=== PATIENT | male | born 1980 | race Caucasian/White ===

== ENCOUNTER 2018-03-13 02:15 | Inpatient (IN) ==
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
[2018-03-13] MEDS ORDERED: *HR* FentaNYL (PF) 100 MCG/2 ML VIAL IVP ONE ×4 (02:30→11:02)
[2018-03-13] MEDS ORDERED: *HR* HYDROcodone/Acet 5/325 mg TABLET PO ONE (03:40)
[2018-03-13] MEDS ORDERED: Naloxone 0.4 MG/ML INJ IVP PRN ×3 (03:57→22:07)
[2018-03-13] MEDS ORDERED: *HR* HYDROcodone/Acet 5/325 mg TABLET PO PRN (03:57)
[2018-03-13 04:16] LABS: Basophils # 0.1 K/mcL (0.0-0.2); Basophils % 0.5 %; Eosinophils # 0.1 K/mcL (0.0-0.6); Eosinophils % 0.5 %; Hemoglobin 14.8 g/dL (12.9-16.9); Immature Granulocytes % 0.5 % (0-4); Lymphocytes # 1.6 K/mcL (0.6-4.6); Lymphocytes % 12.9 %; Mean Corpuscular HGB Conc 33.6 g/dL (31.6-35.5); Mean Corpuscular Hemoglobin 31.8 pg (28.0-33.3); Mean Corpuscular Volume 94.4 fL (83.0-100.0); Mean Platelet Volume 10.2 fL (9.4-12.4); Monocytes # 0.6 K/mcL (0.0-1.3); Monocytes % 4.7 %; Neutrophils # 10.2 K/mcL (1.6-8.9); Platelet Count 227 K/mcL (140-400); Red Blood Count 4.66 M/mcL (4.19-5.50); Red Cell Distribution Width 12.5 % (11.5-14.5); Segmented Neutrophils % 80.9 %
[2018-03-13 04:20] LABS: Prothrombin Time 11.1 Seconds (9.4-12.1)
[2018-03-13 04:22] LABS: Activated Partial Thrombo Time 30.8 Seconds (26.0-36.0)
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
[2018-03-13 04:32] LABS: BUN/Creatinine Ratio 13 (6-26); Blood Urea Nitrogen 11 mg/dL (6-20); Calcium 9.1 mg/dL (8.6-10.3); Carbon Dioxide 26 mEq/L (23-29); Chloride 107 mEq/L (98-107); Glucose 115 mg/dL (70-105); Osmolality,Calculated 292 (280-300); Potassium 4.3 mEq/L (3.5-5.1); Sodium 141 mEq/L (136-145); eGFR For Non-African Americans > 60 (> 60)
[2018-03-13] MEDS: *HR* Heparin 5,000 UNIT/ML VIAL SQ SCH ×2 (05:21→14:51)
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
[2018-03-13] MEDS ORDERED: Nicotine 21 MG PATCH.TD24 TD SCH (09:00)
[2018-03-13] MEDS ORDERED: *HR* OxyCODONE Immed Rel 5 MG TABLET PO PRN ×3 (14:25→22:07)
--- NOTE | 2018-03-13 17:25 | Orthopedics Progress Note ---
Date of Encounter: 03/13/18 Time of Encounter: 17:21 - Assessment and Plan (1) Fracture of right tibia and fibula Current Visit: Yes Status: Acute Qualifiers: Encounter type: initial encounter Fracture type: closed Qualified Code(s): S82.201A - Unspecified fracture of shaft of right tibia, initial encounter for closed fracture; S82.401A - Unspecified fracture of shaft of right fibula, initial encounter for closed fracture Subjective Interval history: S: The patient is resting in bed Pain has been well-controlled to the right leg O: Afebrile on the vital signs are stable Mild swelling to the right tib-fib and moderate swelling to the ankle The compartments are all soft and compressible He is able to dorsiflex and plantarflex the toes The foot is warm, sensate and well-perfused Strong dopplerable DP and PT signals are present in the foot. A: Right tib-fib fracture CT scan shows a noncommunicative posterior malleolus fracture P: This point we are proceeding with closed reduction, likely percutaneous clamping with medullary nailing of the right tibia and I anticipate percutaneous screw into the posterior malleolus from A to P. The risks discussed included but were not limited to stiffness, bleeding, infection, blood clots, damage to neurovascular structures, tendons, ligaments, and bone. Also discussed was the risk of continued symptoms and possible need for further procedures. I did discuss the anesthesia risks including stroke, heart attack, and . I did discuss the reasonable, foreseeable postoperative course with the patient. The patient did wish to proceed and consent was confirmed. Objective Vital signs: Vital Signs Temp Pulse Resp BP Pulse Ox 03/13/18 15:57 98.0 F 84 16 132/75 96 03/13/18 11:25 98.9 F 81 18 127/77 97 03/13/18 07:03 98.7 F 92 18 104/64 93 03/13/18 04:55 98.4 F 85 18 128/76 95 03/13/18 04:09 86 18 139/85 99 03/13/18 02:18 98.8 F 83 16 124/85 98 Intake and Output 03/13/18 03/13/18 03/13/18 07:59 15:59 23:59 Other: Weight 86.3 kg Patient Weight 03/13/18 23:59 Weight 86.3 kg - Labs CBC & BMP: 03/13/18 04:00 03/13/18 04:00 Labs: Abnormal lab results WBC 12.6 K/mcL (4.3-11.1) H 03/13/18 04:00 Neutrophils # 10.2 K/mcL (1.6-8.9) H 03/13/18 04:00 Glucose 115 mg/dL (70-105) H 03/13/18 04:00 Consult Discharge Plan - Plan Referrals: NONE,PCP [Primary Care Provider] -
--- NOTE | 2018-03-13 17:34 | Anesthesia Evaluation PreOp ---
Date of Encounter: 03/13/18 Time of Encounter: 17:32 - Past History Planned Operation: Right tibial nail Cardiac History: Denies any Significant Hx Pulmonary History: Smoker LEGAL PRACTICE MANAGER History: Denies Any Significant HX Other Medical History: Denies Any Significant HX Anesthesia History: No Prior Anesthetic Complications Alcohol Use: occasionally Drug use: none Medications and Allergies No Known Home Drugs 03/13/18 [History] Allergy/AdvReac Type Severity Reaction Status Date / Time No Known Allergies Allergy Verified 03/13/18 12:31 - Meds/Allergy Pre-op Review Medications Reviewed: Yes Allergies Reviewed: Yes Beta Blockers on Current Med List: No Anesthesia Results - Labs 03/13/18 04:00 03/13/18 04:00 Anesthesia Exam Last Vital Signs Temp 98.0 F 03/13/18 15:57 Pulse 84 03/13/18 15:57 Resp 16 03/13/18 15:57 BP 132/75 03/13/18 15:57 Pulse Ox 96 03/13/18 15:57 Weight: 86 kg NPO (# of Hours): > 8 hrs - HEENT Pupil (Motor): Pupils equal, EOMI Mallampati: III Teeth: Normal Oral Opening: Greater than 3 - LEGAL PRACTICE MANAGER LOC: Oriented - Cardiac Rhythm: Regular Murmur: None - Pulmonary Breath Sounds: bilateral Clear Respiratory Effort: Symmetrical Anesthesia Assess/Plan ASA Score: 2 Level of consciousness: Cooperative Anesthetic Plan: General Reason for No Neuroaxial/Regional Block: Other (not necessary; just nail) Monitoring Plan: Standard Monitors Recovery Plan: PACU
[2018-03-13] MEDS ORDERED: *HR* Propofol 200 MG/20 ML VIAL IVP ONE ×2 (17:53)
[2018-03-13] MEDS ORDERED: *HR* FentaNYL (PF) 100 MCG/2 ML VIAL ONE (17:53)
[2018-03-13] MEDS ORDERED: *HR* Midazolam HCl 2 MG/2 ML VIAL ONE (17:53)
[2018-03-13] MEDS ORDERED: Lidocaine -MPF 2% 2 ML VIAL ONE (17:53)
[2018-03-13] MEDS ORDERED: *HR* Succinylcholine 200 MG/10 ML VIAL IVP ONE (17:54)
[2018-03-13] MEDS ORDERED: Ringers Solution, Lactated 1,000 ML ONE (18:08)
[2018-03-13] MEDS ORDERED: Ondansetron 4 MG/2 ML VIAL ONE (18:14)
[2018-03-13] MEDS ORDERED: Dexamethasone 4 MG/ML VIAL ONE (18:14)
[2018-03-13] MEDS ORDERED: *HR* Morphine 10 MG/ML VIAL ONE (19:33)
[2018-03-13] MEDS ORDERED: *HR* FentaNYL (PF) 100 MCG/2 ML VIAL IVP PRN ×2 (20:07→22:07)
[2018-03-13] MEDS ORDERED: Acetaminophen IV 1,000 MG/100 ML INFUS..BTL ONE (21:19)
--- NOTE | 2018-03-13 21:44 | Orthopedic Operative Note ---
Date of procedure: 03/13/18 Procedure: OPERATIVE REPORT SURGEON: Uzair Ro MD PREOPERATIVE DIAGNOSIS: Right tibial shaft fracture with posterior malleolus fracture POSTOPERATIVE DIAGNOSIS: Same PROCEDURE: Right tibial nail (10 mm x 390 mm) and screw fixation of the right posterior malleolus ANESTHESIA: Gen. anesthesia IMPLANTS: Synthes tibial nail and 4.0 cannulated screw PREOPERATIVE NOTE The surgical plan was reviewed with the patient. The risks, benefits, alternatives, and potential complications of this procedure were discussed with the patient including injury to veins, arteries, nerves, tendons, ligaments, and bone. Also discussed were the risks of infection, bleeding, pain, blood clots, the possible need for a blood transfusion, the possible need for further procedures, heart attack, stroke, and . Additional risks include malunion, nonunion, neurovascular injury. All of this was explained in simple terms, and the patient verbalized understanding and wished to proceed. Consent was given to proceed with surgery. PROCEDURE: The patient was seen in the preoperative holding area where the identify and the consent were confirmed. The right leg was marked. Final questions were answered. The patient was brought back to the operating room and placed supine on the operating room table. A huddle was performed with the patient and all vital surgical team members confirming patient identity, the correct procedure, and the correct operative site. Gen. anesthesia was administered. The operative extremity was prepped and draped in the usual sterile fashion. A surgical time out was performed immediately preceding the incision with all personnel in the operating room to confirm patient identity, the correct operative site and extremity, correct radiographic studies, availability of appropriate surgical equipment, and agreement on the planned procedure. Note tourniquet was used. A small longitudinal incision was made over the lateral aspect of the distal tibia and the soft tissue was bluntly spread and once the bone was encountered a guidewire was placed, overdrilled, and the definitive 4.0 millimeter cannulated screw was placed compressing the posterior malleolus quite nicely. Two small nicks were made in the skin to clamp the tibia which was easily accomplished without struggle. A longitudinal incision was made at the inferior pole the patella and full-thickness flaps are made exposing the peritenon around the patellar tendon which was opened and the fibers were split. The guidewire was placed and the opening reamer used. The ball-tipped guidewire was placed down the shaft of the tibia and reamed sequentially in half millimeter increments from 8.5 mm to 11 mm with good chatter. The definitive 10 mm x 390 mm nail was placed uneventfully and locked distally with 2 medial to lateral interlocking screws and 2 screws proximally. The wounds were copiously irrigated. X-rays confirmed good reduction. The clamp was taken down. And after final irrigation the peritenon was closed with 0 Vicryl stitches and the skin was closed with 3-0 Vicryl stitches followed by cathy. A soft, sterile dressing was applied followed by a short leg posterior splint. The instrument, sponge, and needle counts were correct after wound closure. POST OPERATIVE PLAN: Nonweightbearing to the right lower extremity. Lovenox for DVT prophylaxis 28 days. Ambulation with crutches. Was there an personal care assistant present: No Estimated blood loss (cc): 1
[2018-03-13] MEDS: *HR* OxyCODONE Immed Rel 5 MG TABLET PO PRN (22:22)
--- NOTE | 2018-03-14 01:53 | Anesthesia Evaluation Post Op ---
Date of Encounter: 03/14/18 Time of Encounter: 01:53 - Vital Signs Vital Signs: Vital Signs/O2 Sat, Most Current Temp Pulse Resp BP Pulse Ox 98.1 F 70 15 116/73 94 03/14/18 01:49 03/14/18 01:49 03/14/18 01:49 03/14/18 01:49 03/14/18 01:49 - Lungs Lungs: Clear Ascult./Percussion - Airway Airway: Non-obstructed - Cardiovascular Regular Rate - Mental Status Mental Status: Alert & Oriented, Answers Appropriately - Nausea Vomiting Nausea Vomiting: Not Present - Hydration Hydration: NPO - Discharge PostOp Status: Transfer Patient to floor
[2018-03-14] MEDS: *HR* OxyCODONE Immed Rel 5 MG TABLET PO PRN ×5 (03:20→23:00)
[2018-03-14 04:28] LABS: Amphetamine Screen,Urine Negative ng/mL (Cutoff=1000); Barbiturate Screen,Urine Negative ng/mL (Cutoff=200); Benzodiazepines Screen,Urine Positive ng/mL (Cutoff=200); Cannabinoid Screen,Urine Negative ng/mL (Cutoff = 50); Cocaine Screen,Urine Negative ng/mL (Cutoff= 300); Opiate Screen,Urine Positive ng/mL (Cutoff=300); Phencyclidine Screen,Urine Negative ng/mL (Cutoff=25)
[2018-03-14 06:31] LABS: Hematocrit 35.2 % (37.5-50.1); Hemoglobin 11.8 g/dL (12.9-16.9)
[2018-03-14] MEDS: *HR* Enoxaparin 40 MG/0.4 ML SYRINGE SQ SCH (06:33)
[2018-03-14 06:57] LABS: BUN/Creatinine Ratio 13 (6-26); Blood Urea Nitrogen 12 mg/dL (6-20); Calcium 8.4 mg/dL (8.6-10.3); Carbon Dioxide 24 mEq/L (23-29); Chloride 104 mEq/L (98-107); Glucose 191 mg/dL (70-105); Osmolality,Calculated 291 (280-300); Potassium 3.9 mEq/L (3.5-5.1); Sodium 138 mEq/L (136-145); eGFR For Non-African Americans > 60 (> 60)
--- NOTE | 2018-03-14 08:00 | Orthopedics Progress Note ---
Date of Encounter: 03/14/18 Time of Encounter: 07:58 - Assessment and Plan (1) Fracture of right tibia and fibula Current Visit: Yes Status: Acute Qualifiers: Encounter type: initial encounter Fracture type: closed Qualified Code(s): S82.201A - Unspecified fracture of shaft of right tibia, initial encounter for closed fracture; S82.401A - Unspecified fracture of shaft of right fibula, initial encounter for closed fracture Subjective Interval history: S: The patient is resting in bed Pain is well-controlled to the right tibia region O: Afebrile on the vital signs are stable The splint on the right lower extremity is intact Exposed toes are freely mobile, warm, sensate, and well-perfused. Mild tenderness about the anterior knee as expected. A: Post right tibial nail and screw fixation of the posterior malleolus. P: At this point the patient is doing very well clinically. Continued pain control. Ice and elevation of the right leg. Nonweightbearing to the right lower extremity. Therapy to see today. Lovenox for DVT prophylaxis Objective Vital signs: Vital Signs Temp Pulse Resp BP Pulse Ox 03/14/18 07:52 98.4 F 77 16 117/74 95 03/14/18 04:03 98.1 F 64 14 103/55 97 03/14/18 01:49 98.1 F 70 15 116/73 94 03/14/18 00:33 98.2 F 79 16 120/73 96 03/13/18 23:34 98.3 F 70 16 124/74 95 03/13/18 22:55 97.9 F 78 16 139/78 95 03/13/18 22:12 98.3 F 85 16 142/86 94 03/13/18 21:48 99.3 F 81 16 144/84 95 03/13/18 21:38 82 16 144/85 95 03/13/18 21:28 85 16 142/92 95 03/13/18 21:18 97.7 F 84 12 141/93 100 03/13/18 15:57 98.0 F 84 16 132/75 96 03/13/18 11:25 98.9 F 81 18 127/77 97 Intake and Output 03/13/18 03/13/18 03/14/18 15:59 23:59 07:59 Intake Total 100 / 100 Output Total 100 / 100 650 / 650 Balance -100 / -100 -550 / -550 Intake: IV Fluids 100 / 100 Ancef 2,000 MG In 0.9 % Sodium 100 / 100 Chloride 100 ML @ 200 mls/hr IVPB Q8HR REPLACED BY [facility] Rx#:[id number] Output: Urine 650 / 650 Estimated Blood Loss 100 / 100 - Labs CBC & BMP: 03/14/18 05:56 03/14/18 05:56 Labs: Abnormal lab results WBC 12.6 K/mcL (4.3-11.1) H 03/13/18 04:00 Hgb 11.8 g/dL (12.9-16.9) L D 03/14/18 05:56 Hct 35.2 % (37.5-50.1) L 03/14/18 05:56 Neutrophils # 10.2 K/mcL (1.6-8.9) H 03/13/18 04:00 Glucose 191 mg/dL (70-105) H 03/14/18 05:56 Calcium 8.4 mg/dL (8.6-10.3) L 03/14/18 05:56 Urine Opiates Screen Positive ng/mL (Swrwme=802) H 03/14/18 03:30 U Benzodiazepines Scrn Positive ng/mL (Yytjwl=339) H 03/14/18 03:30 Consult Discharge Plan - Plan Referrals: NONE,PCP [Primary Care Provider] -
[2018-03-14] MEDS: Nicotine 21 MG PATCH.TD24 TD SCH (08:12)
[2018-03-14] MEDS: *HR* FentaNYL (PF) 100 MCG/2 ML VIAL IVP PRN ×3 (11:16→20:11)
--- NOTE | 2018-03-14 18:48 | Internal Med Progress Note ---
Hospitalist Progress Note - Encounter Date of Encounter: 03/14/18 Time of Encounter: 09:00 - Subjective Interval History: Patient has surgery by orthopedic. Still complaining of right lower leg pain, need IV pain medication. Vitals are stable. - Exam Vitals: Temp Pulse Resp BP Pulse Ox 98.3 F 73 16 131/85 95 03/14/18 16:41 03/14/18 16:41 03/14/18 16:41 03/14/18 16:41 03/14/18 16:41 Exam: GEN: NAD HEENT: AT, NC, No cyanosis, oral mucosa is moist, No JVD Lymphatics: No lymphadenoapthy Eyes: Extrocular muscles intact, anicteric CVS:RRR. S1, S2, No m/r/g RESP: CTAB ABD: Soft, NT, ND, +BS EXT: No edema, No rashes, 2+ DP, Right lower leg s/p surgery, well dressed. NEURO: Nonfocal, CN II-XII intact, No focal motor or sensory deficits. Psych: Cooperative, Not anxious or depressed - Assessment and Plan (1) Fracture of right tibia and fibula Current Visit: Yes Status: Acute Assessment and Plan: S/P surgery. - Continue pain medication for acute pain management - Continue DVT prophylaxis - Continue PTOT (2) Tobacco abuse Current Visit: Yes Status: Acute Assessment and Plan: Nicotine patch (3) DVT prophylaxis Current Visit: Yes Status: Acute Assessment and Plan: Heparin subcutaneous - Time Spent with Patient Total time spent is greater than 50% in coordination of care (as documented) at patient's floor/unit and/or counseling patient: 30 min 25 - 35 minutes Plan of Care Discussed with: patient Internal Medicine: Result - Labs CBC & Chem 7: 03/14/18 05:56 03/14/18 05:56 Labs: Short CBC 03/14/18 Range/Units 05:56 Hgb 11.8 L D (12.9-16.9) g/dL Hct 35.2 L (37.5-50.1) % BMP 03/14/18 05:56 Sodium 138 Potassium 3.9 Chloride 104 Carbon Dioxide 24 BUN 12 Creatinine 0.94 Glucose 191 H Calcium 8.4 L - ABG Interpretation ABG results: PT/INR, D-dimer PT 11.1 Seconds (9.4-12.1) 03/13/18 04:00 - Impressions Impressions Fluoroscopy 03/13/18 18:30 IMPRESSION: Intraoperative images during ORIF tibia fracture. See procedure note for further details. D/ / More Newsome Cha, MD / More Newsome Cha, MD Interpreting Provider: More Newsome Cha, MD Consult Discharge Plan - Plan Referrals: NONE,PCP [Primary Care Provider] - (1) Fracture of right tibia and fibula Qualifiers: Encounter type: initial encounter Fracture type: closed Qualified Code(s): S82.201A - Unspecified fracture of shaft of right tibia, initial encounter for closed fracture; S82.401A - Unspecified fracture of shaft of right fibula, initial encounter for closed fracture
[2018-03-15] MEDS: *HR* FentaNYL (PF) 100 MCG/2 ML VIAL IVP PRN ×2 (00:09→04:12)
[2018-03-15] MEDS: *HR* OxyCODONE Immed Rel 5 MG TABLET PO PRN ×3 (03:07→12:54)
[2018-03-15 05:38] LABS: Hematocrit 36.8 % (37.5-50.1); Hemoglobin 12.3 g/dL (12.9-16.9)
[2018-03-15 05:54] LABS: BUN/Creatinine Ratio 15 (6-26); Blood Urea Nitrogen 14 mg/dL (6-20); Calcium 8.5 mg/dL (8.6-10.3); Carbon Dioxide 27 mEq/L (23-29); Chloride 103 mEq/L (98-107); Glucose 112 mg/dL (70-105); Osmolality,Calculated 285 (280-300); Potassium 3.9 mEq/L (3.5-5.1); Sodium 137 mEq/L (136-145); eGFR For Non-African Americans > 60 (> 60)
[2018-03-15] MEDS: *HR* Enoxaparin 40 MG/0.4 ML SYRINGE SQ SCH (06:21)
--- NOTE | 2018-03-15 07:32 | Orthopedics Progress Note ---
Date of Encounter: 03/15/18 Time of Encounter: 07:30 - Assessment and Plan (1) Fracture of right tibia and fibula Current Visit: Yes Status: Acute DISCHARGE INSTRUCTIONS Dr. Ro DISCHARGE DIAGNOSIS/PROCEDURE Right tibial nailing ACTIVITY: Do not put any weight on the right lower extremity Elevate the right lower extremity WOUND CARE: Keep the dressing clean, dry, and intact. Do not take dressing off or get wet or dirty. DRIVING: Do not drive. DIET: Begin with clear liquids, and then increase your diet as you feel comfortable. MEDICATIONS: Blood clot prophylaxis: Take her Lovenox as prescribed for the first 2 weeks postoperatively. FOLLOW-UP Follow-up with Dr. Ro or Mariela Warren PA-C at the office 2 from the surgery date for a post operative evaluation. Call the office at [phone] to schedule or confirm your appointment. WHEN TO CALL THE DOCTOR OR WHEN TO SEEK CARE BEFORE YOUR APPOINTMENT 1. Excess swelling or increased numbness not made better by elevating the hand and moving the fingers. 2. Uncontrolled pain. 3. A color change in your hand or fingers. 4. Worsening redness or drainage. 5. Fevers over 100.5 degrees F or 38.1 degrees C. 6. Any symptoms that bring concern to you. Qualifiers: Encounter type: initial encounter Fracture type: closed Qualified Code(s): S82.201A - Unspecified fracture of shaft of right tibia, initial encounter for closed fracture; S82.401A - Unspecified fracture of shaft of right fibula, initial encounter for closed fracture Subjective Interval history: S: The patient is resting in bed Pain is controlled to the right tibia region O: Afebrile on the vital signs are stable The splint on the right lower extremity is intact Exposed toes are freely mobile, warm, sensate, and well-perfused. Mild tenderness about the anterior knee as expected. A: Post right tibial nail and screw fixation of the posterior malleolus. P: At this point the patient is doing very well clinically. Continued pain control. Ice and elevation of the right leg. Nonweightbearing to the right lower extremity. Therapy while in house Lovenox for DVT prophylaxis x 2 weeks post op Objective Vital signs: Vital Signs Temp Pulse Resp BP Pulse Ox 03/15/18 03:59 99.3 F 67 16 148/92 96 03/15/18 00:20 98.3 F 69 16 139/93 96 03/14/18 19:32 98.9 F 97 16 141/90 96 03/14/18 16:41 98.3 F 73 16 131/85 95 03/14/18 15:06 98.9 F 68 16 130/85 96 03/14/18 07:52 98.4 F 77 16 117/74 95 Intake and Output 03/14/18 03/14/18 03/15/18 15:59 23:59 07:59 Intake Total 120 / 120 Output Total 600 / 600 300 / 300 Balance 120 / 120 -600 / -600 -300 / -300 Intake: Oral 120 / 120 Output: Urine 600 / 600 300 / 300 Other: Meal Breakfast Percent of Meal Consumed 80% Weight 86.6 kg Patient Weight 03/15/18 23:59 Weight 86.6 kg - Labs CBC & BMP: 03/15/18 05:10 03/15/18 05:10 Labs: Abnormal lab results WBC 12.6 K/mcL (4.3-11.1) H 03/13/18 04:00 Hgb 12.3 g/dL (12.9-16.9) L 03/15/18 05:10 Hct 36.8 % (37.5-50.1) L 03/15/18 05:10 Neutrophils # 10.2 K/mcL (1.6-8.9) H 03/13/18 04:00 Glucose 112 mg/dL (70-105) H 03/15/18 05:10 Calcium 8.5 mg/dL (8.6-10.3) L 03/15/18 05:10 Urine Opiates Screen Positive ng/mL (Uqqoct=362) H 03/14/18 03:30 U Benzodiazepines Scrn Positive ng/mL (Vvircb=750) H 03/14/18 03:30 Consult Discharge Plan - Plan Referrals: NONE,PCP [Primary Care Provider] -
[2018-03-15] MEDS: Nicotine 21 MG PATCH.TD24 TD SCH (08:07)
--- NOTE | 2018-03-15 10:45 | Discharge Summary ---
- NOTES TO OUTPATIENT PROVIDER Notes to Outpatient Provider: 1. Cont lovenox 40mg sc daily for DVT prophylaxis for 2 weeks, per orthopedic recommendation. Orders not resulted at time of discharge: Pending orders 03/13/18 18:30 XR tibia fibula RT [XR] Routine Date of Encounter: 03/15/18 Time of Encounter: 09:00 - Discharge Diagnosis (1) Fracture of right tibia and fibula Priority: Primary Status: Acute Qualifiers: Encounter type: initial encounter Fracture type: closed Qualified Code(s): S82.201A - Unspecified fracture of shaft of right tibia, initial encounter for closed fracture; S82.401A - Unspecified fracture of shaft of right fibula, initial encounter for closed fracture (2) Tobacco abuse Priority: Secondary Status: Acute (3) DVT prophylaxis Priority: Secondary Status: Acute Hospital course: Mr. Solis is a 37 year old male admitted for right sided tibia/fibula fracture due to mechanical fall. Orthopedic consult saw patient and had internal fixation surgery. After surgery, patient recovered well. No need IV pain medication today. Orthopedic cleared discharge patient home. We will DC patient today. Will continue Lovenox sc 40 mg daily for 2 weeks for DVT prophylaxis. Continue by mouth pain medication for acute pain management. I have seen and examined the patient today. Patient complaint mild to moderate left leg pain, well controlled by by mouth pain medication. Vitals are stable. PTOT evaluation recommend no further PTOT needed. Patient is stable to discharge home. Discharge discussed with: patient Time spent discussing smoking cessation with patient: 3 to 10 minutes - Time Spent with Patient Total time spent providing and/or coordinating discharge services: 30 minutes Less than 30 minutes - Discharge Medications Prescriptions: Enoxaparin [Lovenox] 40 mg SQ 0700 14 Days #14 syringe Nicotine Patch [Nicoderm] 21 mg TD DAILY 14 Days #14 patch.td24 Home Medications: Enoxaparin [Lovenox] 40 mg SQ 0700 14 Days #14 syringe 03/15/18 [Rx] Nicotine Patch [Nicoderm] 21 mg TD DAILY 14 Days #14 patch.td24 03/15/18 [Rx] OxyCODONE/APAP 5/325 [Percocet 5/325 MG] 1 each PO Q6HR PRN 3 Days #12 tablet 11/21/18 [Rx] Allergies/Adverse Reactions: Allergy/AdvReac Type Severity Reaction Status Date / Time No Known Allergies Allergy Verified 03/13/18 12:31 Date of admission: 03/13/18 04:07 Primary care physician: PCP NONE Consults: 03/13/18 03:43 Consult to Orthopedic Surgery [CONS] Stat Consulting Provider: Uzair Ro Reason for Consult: tib/fib fracture on right Time Notified: 03:43 Call Completed: Yes 03/13/18 03:57 Consult to Physical Therapy [CONS] Routine Comment: Evaluate, develop and implement POC Reason for Consult: PT eval Does patient have active BEDREST order?: No Is patient medically & hemodynamically stable?: Yes 03/13/18 22:07 Consult to Orthopedic Navigator [CONS] [CONS] Routine Consult to Ventilation Mechanic [CONS] Routine Reason for SW Consult: post -op hip fracture RT Post Op Consult [CONS] Routine Discharging clinician: Rashi Barcenas Anticipated date of discharge: 03/15/18 - Constitutional Vitals: Temp Pulse Resp BP Pulse Ox 98.8 F 73 16 151/87 95 03/15/18 07:00 03/15/18 07:00 03/15/18 07:00 03/15/18 07:00 03/15/18 07:00 General appearance: Present: A&O X 3, no acute distress, answers questions appropriately Exam: GEN: NAD HEENT: AT, NC, No cyanosis, oral mucosa is moist, No JVD Lymphatics: No lymphadenoapthy Eyes: Extrocular muscles intact, anicteric CVS:RRR. S1, S2, No m/r/g RESP: CTAB ABD: Soft, NT, ND, +BS EXT: No edema, No rashes, 2+ DP, Right lower leg s/p surgery, well dressed. NEURO: Nonfocal, CN II-XII intact, No focal motor or sensory deficits. Psych: Cooperative, Not anxious or depressed - Patient Status Disposition: Home, Self-Care Condition: Good Functional capacity at discharge: uses cane/walker Overall status at discharge: patient is progressing back to baseline - Discharge Instructions Follow Up With: NONE,PCP [Primary Care Provider] - Uzair Ro MD [Partnered Physician] - - Diet and Activity Activity: increase activity as tolerated Diet: advance to your usual diet, regular diet
[2018-03-15 12:09] VITALS: BP 143/86
--- NOTE | 2018-03-16 08:28 | Electrocardiograph Report ---
[address] [address] Test Date: 2018-03-12 Pat Name: Bry Solis Department: 114 Room: [facility] Gender: M Dental Chairside Assistant: FARHAD : 1980 Requested By: Mike Tovar Order Number: [id number] Reading MD: Derek Estrada Measurements Intervals [facility] Rate: 81 P: 60 SC: 144 QRS: 53 QRSD: 92 T: 43 QT: 362 QTc: 399 Interpretive Statements SINUS RHYTHM Electronically Signed On 03-16-2018 8:26:30 EST by Derek Estrada
== END 2018-03-15 16:24 | disposition home or self-care (01) | DRG 494 ==
LOC: 3NENU 02:15 → EMEROOARM 02:15 → SUATTDRO 04:07 → 3NENU 05:23
PROVIDERS: ADMIT Internal Medicine; ATTEND Internal Medicine